=== PATIENT | male | born 2005 | race Caucasian/White ===

== ENCOUNTER 2023-10-05 14:32 | Emergency (ER) | payer MEDICAID ==
[~2023-10-05] VITALS: Ht 180.3 cm; Wt 95.5 kg
[2023-10-05 14:49] VITALS: BP 142/106; PULSE 101; RESP 18; O2SAT 98
[2023-10-05] MEDS ORDERED: ONDA4TAB12 PO (17:01)
[2023-10-05] MEDS ORDERED: HYDR-3973 PO (17:01)
[2023-10-05 17:39] VITALS: TEMP 97.8
== END 2023-10-05 17:41 | disposition home or self-care (01) ==
LOC: ER 14:33
DX: S52.371A Galeazzi's fracture of right radius, initial encounter for closed fracture (principal); Z88.1 Allergy status to other antibiotic agents; X58.XXXA Exposure to other specified factors, initial encounter; Y93.51 Activity, roller skating (inline) and skateboarding; Y92.89 Other specified places as the place of occurrence of the external cause; Y99.8 Other external cause status
CPT/HCPCS: 29125; 73090; 73110; 99284; A4565; A6446; A6449